=== PATIENT | female | born 1985 | race Caucasian/White ===

== ENCOUNTER 2021-07-28 22:00 | Emergency (ER) | payer MEDICAID ==
[~2021-07-28] VITALS: Ht 157.5 cm; Wt 65.5 kg
[~2021-07-28 22:00] MED LIST: FERR325C PO; MULT-1116 PO
[2021-07-29] MEDS ORDERED: KETOROLAC 30MG/ML VIAL IM ONE (00:15)
[2021-07-29] MEDS ORDERED: IBUP-2029 MT (03:12)
[2021-07-29 03:26] VITALS: BP 128/75
== END 2021-07-29 03:34 | disposition home or self-care (01) ==
LOC: ER 22:00
DX: S13.8XXA Sprain of joints and ligaments of other parts of neck, initial encounter (principal); S09.8XXA Other specified injuries of head, initial encounter; S40.022A Contusion of left upper arm, initial encounter; S20.212A Contusion of left front wall of thorax, initial encounter; Z98.890 Other specified postprocedural states; Y08.89XA Assault by other specified means, initial encounter; Y93.89 Activity, other specified; Y92.810 Car as the place of occurrence of the external cause
CPT/HCPCS: 70450; 71101; 72125; 73060; 81025; 96372; 99284; J1885

== ENCOUNTER 2021-08-07 09:17 | Emergency (ER) | payer MEDICAID ==
[~2021-08-07] VITALS: Ht 162.6 cm; Wt 75.0 kg
[~2021-08-07 09:17] MED LIST changes: +IBUP-2029 MT
[2021-08-07] MEDS ORDERED: DOXY100C5 MT (13:11)
[2021-08-07] MEDS ORDERED: LIDOCAINE HCL 1% 20ML VIAL (Pyxis) INJ INFIL ONE (13:15)
[2021-08-07] MEDS ORDERED: CEFTRIAXONE SODIUM 500 MG/VIAL IM ONE (13:15)
[2021-08-07 13:54] VITALS: BP 120/87
== END 2021-08-07 14:11 | disposition home or self-care (01) ==
LOC: ER 09:17
DX: N89.8 Other specified noninflammatory disorders of vagina (principal); Z98.890 Other specified postprocedural states
CPT/HCPCS: 87210; 96372; 99283; J0696; J3490